=== PATIENT | male | born 1955 | race Two or more races ===

== ENCOUNTER 2018-10-30 07:04 | Emergency (ER) | payer MEDICARE ==
[~2018-10-30] VITALS: Ht 157.5 cm; Wt 81.6 kg
[2018-10-30 07:21] VITALS: BP 172/86
[2018-10-30] MEDS ORDERED: KETOROLAC TROMETH 60MG/2ML VIAL IM ONE (07:45)
== END 2018-10-30 08:18 | disposition home or self-care (01) ==
LOC: EDBD 07:04 → ER 07:04
DX: S13.4XXA Sprain of ligaments of cervical spine, initial encounter (principal); E11.9 Type 2 diabetes mellitus without complications; V49.9XXA Car occupant (driver) (passenger) injured in unspecified traffic accident, initial encounter; Y93.I9 Activity, other involving external motion; Y92.488 Other paved roadways as the place of occurrence of the external cause; Y99.8 Other external cause status
CPT/HCPCS: 70450; 72040; 72070